=== PATIENT | male | born 1960 | race Caucasian/White ===

== ENCOUNTER 2017-11-10 | Emergency (ER) | payer OTHER ==
[~2017-11-10] VITALS: Ht 172.7 cm; Wt 100.0 kg
[2017-11-10 00:08] VITALS: BP 138/98
[2017-11-10] MEDS ORDERED: FERR325E14 PO (00:15)
[2017-11-10] MEDS ORDERED: INSU100S22 SUBQ (00:15)
[2017-11-10] MEDS ORDERED: FURO20TA8 PO (00:15)
[2017-11-10] MEDS ORDERED: OMEP20TC12 PO (00:15)
[2017-11-10] MEDS ORDERED: GABA300C PO (00:15)
[2017-11-10] MEDS ORDERED: LACT10SO1 PO (00:15)
[2017-11-10] MEDS ORDERED: SPIR50TA PO (00:15)
[2017-11-10] MEDS ORDERED: LIRA6SOL SC (00:15)
[2017-11-10] MEDS ORDERED: PROP20TA29 PO (00:15)
[2017-11-10] MEDS ORDERED: LISI10TA11 PO (00:15)
--- NOTE | 2017-11-10 00:27 | NUR ---
57/M CAME IN W C/O NAUSEA, DIZZINESS AND UNSTEADY GAIT X 2 DAYS. ABD SOFT, ROUND, BS ACTIVE X4. DENIES ANY FALLS, ANY PAIN, V/D, VISUAL DISTURBANCES. PMH: CIRRHOSIS, ESOPHAGEAL VARICES, HTN, DM Addendum: 11/10/17 at 0235 by SARA GCS 15, AOX4
--- NOTE | 2017-11-10 00:27 | NUR ---
PT TAKEN TO BED 7
--- NOTE | 2017-11-10 01:00 | NUR ---
ER MD DR BRUNNER AT BEDSIDE FOR EVAL
--- NOTE | 2017-11-10 01:12 | NUR ---
PT SENT TO CT WITH TECH VIA W/C
[2017-11-10 01:22] LABS: BASOPHILS % (AUTO) 0.5 % (0.0-2.0); EOSINOPHILS # (AUTO) 0.1 K/uL (0-0.4); EOSINOPHILS % (AUTO) 2.8 % (0.0-4.0); HEMATOCRIT 36.6 % (36-52); HEMOGLOBIN 12.8 g/dL (12.0-18.0); LYMPHOCYTES # (AUTO) 1.5 K/uL (2.0-11.5); LYMPHOCYTES % (AUTO) 31.6 % (20.5-51.1); MEAN CORPUSCULAR HEMOGLOBIN 33 pg (27-31); MEAN CORPUSCULAR HGB CONC 35 g/dL (33-37); MEAN CORPUSCULAR VOLUME 95.3 fL (80-94); MONOCYTES # (AUTO) 0.4 K/uL (0.8-1.0); MONOCYTES % (AUTO) 8.6 % (1.7-9.3); NEUTROPHILS # (AUTO) 2.7 K/uL (1.8-7.7); NEUTROPHILS % (AUTO) 56.5 % (42.2-75.2); PLATELET COUNT (AUTO) 63 K/uL (140-450); RED BLOOD CELL COUNT(AUTO) 3.84 MIL/uL (4.20-6.10); WHITE BLOOD COUNT (AUTO) 4.8 K/uL (4.8-10.8)
[2017-11-10 01:26] LABS: APPEARANCE,URINE CLEAR (CLEAR); BILIRUBIN,URINE NEGATIVE (NEGATIVE); BLOOD, URINE 1+ (NEGATIVE); COLOR,URINE YELLOW (YELLOW); LEUKOCYTE ESTERASE ,URINE NEGATIVE (NEGATIVE); NITRITE, URINE NEGATIVE (NEGATIVE); PH,URINE 5.5 (5.0-9.0); UGLUCOSE 1+ (NEGATIVE)
--- NOTE | 2017-11-10 01:27 | NUR ---
PT RETURN FROM CT
--- NOTE | 2017-11-10 01:28 | NUR ---
PT FROM CT AAOX4 VIA W/C. Addendum: 11/10/17 at 0143 by MEDRJJ PT BACK FROM CT
[2017-11-10 01:33] LABS: CARBON DIOXIDE 23.7 mmol/L (21-32); CREATININE 0.9 mg/dL (0.7-1.3); POTASSIUM 3.7 mmol/L (3.5-5.1)
[2017-11-10 01:38] LABS: ALBUMIN 3.7 g/dL (3.4-5.0); TOTAL BILIRUBIN 1.9 mg/dL (0.0-1.0)
--- NOTE | 2017-11-10 01:45 | NUR ---
Patient appears to be resting comfortably in bed. Vital Signs within normal limits. Respirations even and unlabored.
[2017-11-10 01:49] LABS: RBC,URINE 3-10 (FEW) /HPF (0-5); WBC,URINE 0-5 (RARE) /HPF (0-5)
[2017-11-10 01:50] LABS: PROTHROMBIN TIME 13.2 secs (10.8-13.4)
[2017-11-10] MEDS ORDERED: LACTULOSE 20 GM/30 ML UDC PO ONE (02:25)
--- NOTE | 2017-11-10 03:46 | NUR ---
Patient appears to be resting comfortably in bed. Vital Signs within normal limits. Respirations even and unlabored.
--- NOTE | 2017-11-10 04:21 | NUR ---
Patient to be transferred to [facility]. Is being transferred due to CONTINUITY OF CARE. Receiving facility has accepting physician and available space. ER physician has signed transfer form. Patient or responsible democrat has agreed to transfer and signed form. Patient belongings inventoried and will be sent with patient. Copy of nursing notes, lab reports, EKG, Physicians Orders and X-rays to be sent with patient. Report called to CONNIE MENARD at receiving facility. [facility] ambulance service has been called for transfer. ETA is BETWEEN [phone].
--- NOTE | 2017-11-10 04:22 | NUR ---
Patient Tranfers to outside Facility- [facility] Physician:DR GRACE SUAREZ Location:[facility]ILD CARE ASSISTANT TO CALL REPORT # [id number] ETA 5:45-6:00AM 11/10/17
[2017-11-10 06:32] VITALS: BP 133/87
--- NOTE | 2017-11-10 06:32 | NUR ---
PT PICKED UP BY RADHA TO [facility]
== END 2017-11-10 06:32 | disposition short-term general hospital (02) ==
LOC: MED
DX: B19.20 Unspecified viral hepatitis C without hepatic coma (principal); K72.90 Hepatic failure, unspecified without coma; K74.60 Unspecified cirrhosis of liver; R41.82 Altered mental status, unspecified; D69.6 Thrombocytopenia, unspecified; E11.9 Type 2 diabetes mellitus without complications
CPT/HCPCS: 36415; 70450; 71045; 80053; 81001; 82140; 82948; 83605; 83690; 83880; 84484; 85025; 85610; 87040; 87086; 93005; 99285; Q0092